=== PATIENT | male | born 1955 | race Caucasian/White ===

== ENCOUNTER → 2016-12-17 | Outpatient (CLI) | payer BC ==
[~2016-12-17] MED LIST: ACET-24 PO; ASPEC81 PO; CLB200 PO; NAPR1TAB9 PO; ONDA8TAB6 PO; PRLSR20 PO; RXC5 PO; SENN1TAB80 PO
[2016-12-17 14:37] LABS: ALT/SGPT 25 U/L (12-78); AST/SGOT 13 U/L (15-37); BLOOD UREA NITROGEN 15 mg/dl (7-18); BUN/CREATININE RATIO 17.5 (10-20); CALCIUM 8.9 mg/dl (8.5-10.1); CARBON DIOXIDE 25 mmol/L (21-32); CHLORIDE 109 mmol/L (98-107); CREATININE 0.88 mg/dl (0.60-1.40); GLUCOSE 91 mg/dl (70-99); POTASSIUM 4.1 mmol/L (3.5-5.1); SODIUM 140 mmol/L (136-145)
[2016-12-17 14:42] LABS: ALKALINE PHOSPHATASE 68 U/L (45-117); CHOLESTEROL 125 mg/dl (0-200); CHOLESTEROL/HDL RATIO 2.5; HDL CHOLESTEROL 50 mg/dl; TRIGLYCERIDES 74 mg/dl (0-150); VERY LOW DENSITY LIPOPROT CALC 15 mg/dl
== END | disposition home or self-care (01) ==
LOC: C.LAB 12:40
PROVIDERS: ATTEND Family Medicine
DX: Z13.6 Encounter for screening for cardiovascular disorders (principal); Z11.59 Encounter for screening for other viral diseases

== ENCOUNTER 2016-12-22 09:03 | Inpatient (IN) | payer BC ==
[2016-12-17 12:10] VITALS: BMI 42.0
--- NOTE | 2016-12-17 12:44 | PAT Medication Instructions ---
Service Date Dec 17, 2016. Current Home Medication List Naproxen (Aleve), 440 MG PO DAILY PRN for Pain Omeprazole (Prilosec), 20 MG PO DAILY PRN for Heartburn Medication Instructions For Your Scheduled Surgery - Check with surgeon for instructions: Naproxen (Aleve), 440 MG PO DAILY PRN for Pain - Take the following medications the morning of surgery with a sip of water: Omeprazole (Prilosec), 20 MG PO DAILY PRN for Heartburn (if needed) - Take the following medications as scheduled the night before surgery: Omeprazole (Prilosec), 20 MG PO DAILY PRN for Heartburn (if needed) If you have any questions please call us at [phone] or [phone] or [phone]
[2016-12-17 13:18] LABS: BASO % 0.5 %; BASO ABS # 0.03 K/uL (0-0.2); COMPLETE YES; EOS % 2.2 %; HEMATOCRIT 45.4 % (42-52); IG% 0.2 %; LYMPH % 33.5 %; LYMPH ABS # 1.94 K/uL (1.2-3.4); MEAN CELL VOLUME 91.5 fL (80-100); MEAN CORPUSCULAR HEMOGLOBIN 31.7 pg (25-34); MEAN CORPUSCULAR HGB CONC 34.6 g/dl (32-36); MEAN PLATELET VOLUME 9.8 fL (7.4-10.4); MONO % 7.6 %; PLATELET COUNT 186 K/uL (130-400); RED BLOOD COUNT 4.96 M/uL (4.7-6.1); WHITE BLOOD COUNT 5.79 K/uL (4.8-10.8)
[2016-12-17 13:32] LABS: PROTHROMBIN TIME (PATIENT) 10.7 SECONDS (9.0-12.0)
[2016-12-17 13:34] LABS: URINE APPEARANCE CLEAR (CLEAR); URINE BILIRUBIN NEG (NEG); URINE COLOR DK YELLOW; URINE NITRITE NEG (NEG); URINE SPECIFIC GRAVITY 1.027 (1.000-1.030); UROBILINOGEN NEG (NEG)
--- NOTE | 2016-12-17 13:35 | DIAGNOSTIC IMAGING REPORT ---
CHEST 2 VIEWS ROUTINE HISTORY: 61 years-old Male pat preoperative exam. No acute chest complaints COMPARISON: None available TECHNIQUE: PA and lateral views of the chest FINDINGS: Cardiomediastinal and hilar silhouettes are within normal limits. Lungs are mildly hyperinflated. No pneumothorax, pleural effusion, focal airspace consolidation or overt pulmonary edema. Remote appearing rib fractures are noted. The bones appear grossly intact. Multilevel endplate spurring of the spine. IMPRESSION: No acute cardiopulmonary process. The above report was generated using voice recognition software. It may contain grammatical, syntax or spelling errors. Electronically signed by: Onofre Clark M.D. 12/17/2016 1:34 PM Dictated Date/Time: 12/17/2016 1:33 PM
[2016-12-17 13:40] LABS: MANUAL MICROSCOPIC REQUIRED? NO; REVIEW REQ? NO
[2016-12-17 13:49] LABS: ESTIMATED AVERAGE GLUCOSE 103 mg/dl; HA1C FLAG Normal (Normal)
[~2016-12-22] VITALS: Ht 180.3 cm; Wt 136.2 kg
[2016-12-22] VITALS (8 sets, daily range): BP systolic 117–179; BP diastolic 72–98; PULSE 61–85; TEMP 36.3–37; O2SAT 95–99; Ht 180.3 cm; Wt 136.2 kg
--- NOTE | 2016-12-22 07:07 | History and Physical ---
History & Physical Date Dec 22, 2016. Chief Complaint Patient presents is a 61-year-old white male with severe end-stage DJD left knee with varus alignment for left total knee arthroplasty after failing attempts at conservative management History of Present Illness The patient is a 61 year old male with complaints of ongoing left knee pain varus alignment failing attempts at viscus supplementation corticosteroid injections and antibiotic anti-inflammatories as well as bracing relative rest activity modification Additional History Hepatic Disease: No Endocrine Disorder: No Kidney Disease: No Hypertension: No Heart Disease: No Bleeding Tendencies: No Infectious Diseases: No Allergies Uncoded Allergies: PENICILLIN (Allergy, Unknown, swelling, 12/17/16) Home Medications Scheduled PRN Naproxen (Aleve), 440 MG PO DAILY PRN for Pain Omeprazole (Prilosec), 20 MG PO DAILY PRN for Heartburn Physical Examination Skin: warm/dry, no rash Eyes: normal inspection, EOMI, sclerae normal ENT: normal ENT inspection, pharynx normal Head: normocephalic, atraumatic Neck: supple, no adenopathy, trachea midline Respiratory/Chest: lungs clear, normal breath sounds, no respiratory distress Cardiovascular: regular rate, rhythm, no edema, no murmur Abdomen / GI: normal bowel sounds, non tender Back: normal inspection Extremities: normal inspection, normal range of motion, + pertinent finding ( patient presents with severe end-stage DJD varus alignment osteophyte subchondral sclerosis and marginal osteophytes varus alignment left knee) Neurologic/Psych: no motor/sensory deficits, alert, normal reflexes, oriented x 3 Diagnosis Severe end-stage Tri-Chlor milligrams joint disease left knee with subchondral sclerosis osteophyte formation loose bodies Plan of Treatment 30 arthroplasty postoperative pain management DVT prophylaxis and box is necessary
--- NOTE | 2016-12-22 07:08 | History & Physical Bridge Note ---
H&P Re-Evaluation Bridge Note: I have examined the patient, reviewed the History & Physical and in the interval since the performance of the History & Physical I have noted the following changes of clinical significance: No changes noted
[~2016-12-22 09:03] MED LIST changes: -ACET-24 PO; -ASPEC81 PO; +BUPIVACAINE 0.25% 30 ML VIAL ONE; +BUPIVACAINE 0.5 % 5 MG/1 ML PF 10ML VIAL ONE; -CLB200 PO; +DEXAMETHASONE SOD INJ 4 MG/ML VIAL ONE; +EpINEphrine INJ 1MG/ML AMP 1 MG/ML AMP ONE; +FENTANYL CITRATE INJ 50 MCG/1 ML 2 ML VIAL ONE; +LACTATED RINGER'S 1000ML 1,000 ML IV SCH; +LACTATED RINGER'S 1000ML 500 ML IV ONE; +MIDAZOLAM HCL 1 MG/ML 2ML VIAL ONE; -ONDA8TAB6 PO; +PROPOFOL IV EMULSION 10 MG/ML 20 ML VIAL IV ONE; -RXC5 PO; -SENN1TAB80 PO
[2016-12-22] MEDS ORDERED: NURSING VERBAL MED ORDER STA (09:43)
[2016-12-22] MEDS ORDERED: CEFAZOLIN SOD 2000MG/10 ML IV PUSH IV ONE (09:51)
[2016-12-22] MEDS: TRANEXAMIC ACID INJ 1,000 MG in SYRINGE 0 ML IV SCH ×2 (10:15→10:45)
[2016-12-22] MEDS ORDERED: ROPIVACAINE 5MG/ML 30 ML 150 MG, BUPIVACAINE 0.5% MPF INJ 30 ML, EpINEphrine HCL INJ 0.... INFIL ONE ×8 (10:30)
[2016-12-22] MEDS ORDERED: ATROPINE SULFATE 0.1 MG/ML 5ML SYR IV PRN (11:00)
[2016-12-22] MEDS ORDERED: EpHEDrine SULFATE INJ 50 MG/ML AMP IV PRN (11:00)
[2016-12-22] MEDS ORDERED: ONDANSETRON INJ 2 MG/ML 2 ML VIAL IV PRN ×2 (11:00→13:45)
[2016-12-22] MEDS ORDERED: BACITRACIN 50000 UNIT VIAL ONE (11:12)
[2016-12-22] MEDS ORDERED: POVIDONE-IODINE OP SOLN 30 ML BTL ONE (11:12)
[2016-12-22] MEDS ORDERED: CLINDAMYCIN PHOS 150 MG/ML 2 ML VIAL ONE (12:02)
[2016-12-22] MEDS ORDERED: PROPOFOL IV EMULSION 10 MG/ML 20 ML VIAL IV ONE ×2 (12:24→12:58)
--- NOTE | 2016-12-22 13:02 | [facility] Operative Report ---
Operative Report Operative Date Dec 22, 2016. Pre-Operative Diagnosis Severe end-stage Tri-Chlor milligrams joint disease left knee with subchondral sclerosis osteophyte formation loose bodies Post-Operative Diagnosis SAME Procedure(s) Performed Left total knee arthroplasty cemented utilizing Conti & Nephew journey 2 nonlocked total knee arthroplasty size 8 femur 7 tibia Poly-[address] Garrison Bar Machine Operator Multiple Spindle Surgeon(s) Reginald Gold PA-C Estimated Blood Loss 5ML Findings Patient presents with severe end-stage tricompartmental degenerative joint disease with varus alignment subchondral cystic changes osteophytes sclerosis failed attempts at conservative management Specimens A. Left knee bone and tissue Complication(s) None Disposition Recovery Room / PACU Indications Patient presents after failing times a conservative management with severe end- stage DJD left knee presents after failing attempts at the viscus of rotations corticosteroid injections relative rest activity modification bracing physical therapy presents for left total knee arthroplasty Description of Procedure After proper prepping and draping of the left lower extremity anterior midline incision was made over the region of the extensor extensor mechanism after meticulous hemostasis was obtained and maintained in subcutaneous tissues a medial parapatellar incision was made The patella was subluxed lateralward the medial lateral gutter were cleaned from any hypertrophic synovitis and scar tissue of the distal femoral block was placed and the distal femoral osteotomy cut was made subsequently the chamfers anterior and posterior osteotomy cuts were made utilizing the 4-in-1 block the tibia was subsequently subluxed anteriorward medial and ateral meniscal remnants were excised in their entirety remnants of the anterior and posterior cruciate ligaments were excised in their entirety excellent exposure of the proximal tibia was obtained the tibial osteotomy guide was placed on the proximal tibial osteotomy cut was made once again the knee was irrigated with copious amounts of sterile saline solution the patella was subsequently everted lateralward thickened scar tissue around the patella was removed the patella was subsequently cut utilizing a freehand technique and was drilled prepared for final preparation and placement of patella socially flexion-extension gaps were checked and the equal and symmetric trials were placed to the appropriate femoral and tibial trials with poly-spacer being placed for equal flexion and extension gaps and full range of motion including extension to 0 and flexion to 140 the trial components after having been taken to recovery range of motion was subsequently removed meticulous hemostasis was obtained and maintained subsequently a knee block injection of joint cocktail including ropivacaine 0.5% 150 mg. Bupivacaine 0.5 % epinephrine 1-200,030 mL's toradol 30 mg dexamethasone 4 mg ketamine 10 mg clonidine 100 micrograms normal saline solution 30 mg was infiltrated into the soft tissues of the posterior knee medial lateral gutters and periosteal synovium special attention was paid to protect neurovascular structures at all times subsequently trial components having been removed the knee was irrigated with sterile saline solution. debris was removed the proximal tibia was subsequently prepared and was made ready for the placement of the tibial component tibial component was also cemented and tamped into position the femoral component was subsequently placed and cemented in the position the patellar component was subsequently cemented in position because hemostasis once again obtained and maintained wound having been thoroughly irrigated with debridement and debridement lavage was performed as well as a medial parapatellar incision closed with #1 Vicryl in interrupted fashion subcutaneous was closed with #2 Vicryl skin was closed with skin clips. PA-C was necessary for prepping and drapping as well as wound closure of deep fascia Sub cutaneous tissue and skin and was necessary for the case. A sterile compressive dressing was placed patient was taken to recovery in stable condition of report dictated by Bladimir I attest to the content of the Intraoperative Record and any orders documented therein. Any exceptions are noted below. I attest to the content of the Intraoperative Record and any orders documented therein. Any exceptions are noted below.
[2016-12-22] MEDS ORDERED: ALUMINUM/MAGNESIUM/SIMETH (MAALOX MAX) 30 ML UDC PO PRN (13:45)
[2016-12-22] MEDS ORDERED: BISACODYL 10 MG SUPP PR PRN (13:45)
[2016-12-22] MEDS ORDERED: MoRPHine SULFATE 2 MG/ML CARP IV PRN ×2 (13:45→15:45)
[2016-12-22] MEDS ORDERED: MAGNESIUM HYDROXIDE SUSP 30 ML UDC PO PRN (13:45)
[2016-12-22] MEDS ORDERED: OXYCODONE HCL IR 5 MG TAB (IMMEDIATE RELEASE) PO PRN (13:45)
--- NOTE | 2016-12-22 14:04 | DIAGNOSTIC IMAGING REPORT ---
L KNEE 1 OR 2 VIEWS ROUTINE HISTORY: 61 years-old Male AP/LATERAL IN PACU LEFT KNEE status post left knee total joint arthroplasty. Degenerative joint disease. COMPARISON: None available TECHNIQUE: Frontal and lateral views of the left knee FINDINGS: Postoperative changes compatible with total joint arthroplasty and patellar resurfacing are noted. No periprosthetic fracture, malalignment or retained foreign body identified. Surgical drain is in place. Expected soft tissue swelling and deep tissue air is noted postoperatively. IMPRESSION: Status post left knee total joint arthroplasty and patellar resurfacing without complication identified. The above report was generated using voice recognition software. It may contain grammatical, syntax or spelling errors. Electronically signed by: Onofre Clark M.D. 12/22/2016 2:03 PM Dictated Date/Time: 12/22/2016 2:02 PM
--- NOTE | 2016-12-22 15:13 | Anesthesiology Progress Note ---
Anesthesia Post Op Note Date & Time Dec 22, 2016 at 15:13 Vital Signs Pain Intensity: 0 Vital Signs Past 12 Hours Date Time Temp Pulse Resp B/P (MAP) Pulse Ox O2 Delivery O2 Flow Rate FiO2 12/22/16 15:05 63 13 99 12/22/16 15:05 64 13 12/22/16 15:00 60 14 12/22/16 15:00 60 14 118/73 99 12/22/16 14:56 94/69 12/22/16 14:55 58 14 12/22/16 14:55 59 14 99 12/22/16 14:51 113/71 12/22/16 14:50 59 14 99 12/22/16 14:50 59 14 12/22/16 14:46 116/71 12/22/16 14:45 56 14 12/22/16 14:45 56 14 100 12/22/16 14:41 117/77 12/22/16 14:40 58 15 99 12/22/16 14:40 59 15 12/22/16 14:36 115/75 12/22/16 14:35 60 24 100 12/22/16 14:35 60 24 12/22/16 14:31 115/71 12/22/16 14:30 58 12 12/22/16 14:30 58 12 100 12/22/16 14:29 61 16 100 12/22/16 14:29 61 16 12/22/16 14:26 123/79 12/22/16 14:24 59 16 12/22/16 14:24 58 16 100 12/22/16 14:21 36.5 59 16 117/70 100 Nasal Cannula 2 12/22/16 14:21 117/70 12/22/16 14:19 60 17 100 12/22/16 14:19 60 17 12/22/16 14:18 61 16 12/22/16 14:18 62 16 100 12/22/16 14:16 112/72 12/22/16 14:13 65 15 12/22/16 14:13 64 15 100 12/22/16 14:11 118/93 12/22/16 14:08 66 20 12/22/16 14:08 67 20 98 12/22/16 14:07 106/63 12/22/16 14:07 106/63 12/22/16 14:05 65 17 12/22/16 14:05 65 17 12/22/16 14:05 65 17 100 12/22/16 14:05 65 17 100 12/22/16 14:02 104/63 12/22/16 14:02 104/63 12/22/16 14:00 68 17 12/22/16 14:00 69 17 100 12/22/16 14:00 69 17 100 12/22/16 14:00 68 17 12/22/16 13:55 66 19 12/22/16 13:55 66 19 12/22/16 13:55 67 19 99 12/22/16 13:55 67 19 99 12/22/16 13:53 36.0 73 18 96/63 (68) 98 Room Air 2 12/22/16 13:51 96/60 12/22/16 13:51 93/60 12/22/16 13:50 65 15 12/22/16 13:50 64 15 100 12/22/16 13:50 64 15 100 12/22/16 13:50 65 15 12/22/16 13:47 99/61 12/22/16 13:47 99/61 12/22/16 13:45 74 19 12/22/16 13:45 76 19 98 12/22/16 13:45 76 19 98 12/22/16 13:45 74 19 12/22/16 13:42 96/51 12/22/16 13:42 96/51 12/22/16 13:41 96/63 12/22/16 13:41 96/63 12/22/16 13:40 70 15 12/22/16 13:40 70 15 98 12/22/16 13:40 70 15 12/22/16 13:40 70 15 98 12/22/16 09:32 36.5 85 18 179/98 95 Room Air Notes Mental Status: alert / awake / arousable, participated in evaluation Pt Amnestic to Procedure: Yes Nausea / Vomiting: adequately controlled Pain: adequately controlled Airway Patency, RR, SpO2: stable & adequate BP & HR: stable & adequate Hydration State: stable & adequate Anesthetic Complications: no major complications apparent
[2016-12-22] MEDS ORDERED: MoRPHine SULFATE 10 MG/ML CARP/VIAL IV PRN (15:45)
[2016-12-22] MEDS ORDERED: MoRPHine SULFATE 4 MG/ML 1 ML CARP\\VIAL IV PRN (15:45)
[2016-12-22] MEDS: D5W AND 1/2NSS + 20MEQ KCL 1,000 ML IV SCH (16:34)
[2016-12-22] MEDS: KETOROLAC TROMETHAMINE 15 MG/ML VIAL IV. SCH ×2 (16:36→22:07)
[2016-12-22] MEDS: ACETAMINOPHEN 500 MG TAB PO SCH ×2 (16:51→22:06)
[2016-12-22] MEDS: FERROUS GLUCONATE 324 MG TAB PO SCH (17:33)
[2016-12-22] MEDS: CLINDAMYCIN IV 600 MG in DEXTROSE 5% 50ML 50 ML IV SCH (19:55)
[2016-12-22] MEDS: ASPIRIN 81 MG ECTAB PO SCH (22:06)
[2016-12-22] MEDS: SENNA 8.6 MG TAB PO SCH (22:06)
[2016-12-22] MEDS: DOCUSATE SODIUM 100 MG CAP PO SCH (22:06)
[2016-12-23] VITALS (7 sets, daily range): BP systolic 112–144; BP diastolic 72–92; PULSE 60–93; TEMP 36.4–37; O2SAT 96–98
[2016-12-23] MEDS: D5W AND 1/2NSS + 20MEQ KCL 1,000 ML IV SCH ×2 (02:48→12:32)
[2016-12-23] MEDS: CLINDAMYCIN IV 600 MG in DEXTROSE 5% 50ML 50 ML IV SCH (03:44)
[2016-12-23] MEDS: KETOROLAC TROMETHAMINE 15 MG/ML VIAL IV. SCH ×2 (03:44→10:17)
[2016-12-23] MEDS: ACETAMINOPHEN 500 MG TAB PO SCH ×3 (05:38→21:35)
[2016-12-23 06:54] LABS: MEAN CELL VOLUME 91.1 fL (80-100); MEAN CORPUSCULAR HEMOGLOBIN 31.4 pg (25-34); MEAN CORPUSCULAR HGB CONC 34.4 g/dl (32-36); MEAN PLATELET VOLUME 10.2 fL (7.4-10.4); PLATELET COUNT 148 K/uL (130-400); RED BLOOD COUNT 3.95 M/uL (4.7-6.1); WHITE BLOOD COUNT 12.22 K/uL (4.8-10.8)
[2016-12-23 07:31] LABS: BUN/CREATININE RATIO 17.7 (10-20); CALCIUM 8.7 mg/dl (8.5-10.1); CREATININE 0.89 mg/dl (0.60-1.40); POTASSIUM 4.2 mmol/L (3.5-5.1)
--- NOTE | 2016-12-23 08:34 | Orthopedic Progress Note ---
Orthopedic Progress Note Date of Service Dec 23, 2016. Subjective Post OP Day: 1 Reports: feeling well, Denies: complaints Objective calves soft nontender, N/V intact, dressing C/D/I, A&O x3, toes mobile, hemovac drainage (350ml latest shift) Date Time Temp Pulse Resp B/P (MAP) Pulse Ox O2 Delivery O2 Flow Rate FiO2 12/23/16 07:55 96 Room Air 12/23/16 07:47 36.6 62 16 134/82 (99) 96 Room Air 12/23/16 03:20 36.7 61 18 134/86 (102) 97 Room Air 12/22/16 23:15 37.0 65 18 119/80 (93) 97 Room Air 12/22/16 19:55 Room Air 12/22/16 19:23 36.8 65 17 145/92 (109) 97 Room Air 12/22/16 18:18 36.5 66 18 129/76 (93) 95 Room Air 12/22/16 17:14 36.3 65 17 132/84 (100) 97 Room Air 12/22/16 16:16 36.9 61 17 124/76 (92) 99 Nasal Cannula 2.0 12/22/16 15:47 36.8 62 17 117/78 (91) 98 Nasal Cannula 2.0 12/22/16 15:15 95 Nasal Cannula 2.0 12/22/16 15:15 36.5 76 18 125/72 (89) 95 Nasal Cannula 2.0 12/22/16 15:15 Nasal Cannula 2.0 12/22/16 15:05 63 13 99 12/22/16 15:05 64 13 12/22/16 15:00 60 14 12/22/16 15:00 60 14 118/73 99 12/22/16 14:56 94/69 12/22/16 14:55 58 14 12/22/16 14:55 59 14 99 12/22/16 14:51 113/71 12/22/16 14:50 59 14 99 12/22/16 14:50 59 14 12/22/16 14:46 116/71 12/22/16 14:45 56 14 12/22/16 14:45 56 14 100 12/22/16 14:41 117/77 12/22/16 14:40 58 15 99 12/22/16 14:40 59 15 17 14:36 115/75 17 14:35 60 24 100 17 14:35 60 24 17 14:31 115/71 17 14:30 58 12 17 14:30 58 12 100 17 14:29 61 16 100 17 14:29 61 16 17 14:26 123/79 12/22/16 14:24 59 16 17 14:24 58 16 100 17 14:21 36.5 59 16 117/70 100 Nasal Cannula 2 12/22/16 14:21 117/70 12/22/16 14:19 60 17 100 12/22/16 14:19 60 17 12/22/16 14:18 61 16 12/22/16 14:18 62 16 100 12/22/16 14:16 112/72 12/22/16 14:13 65 15 12/22/16 14:13 64 15 100 12/22/16 14:11 118/93 12/22/16 14:08 66 20 12/22/16 14:08 67 20 98 12/22/16 14:07 106/63 12/22/16 14:07 106/63 12/22/16 14:05 65 17 12/22/16 14:05 65 17 12/22/16 14:05 65 17 100 12/22/16 14:05 65 17 100 12/22/16 14:02 104/63 12/22/16 14:02 104/63 12/22/16 14:00 68 17 12/22/16 14:00 69 17 100 12/22/16 14:00 69 17 100 12/22/16 14:00 68 17 12/22/16 13:55 66 19 12/22/16 13:55 66 19 17 13:55 67 19 99 17 13:55 67 19 99 17 13:53 36.0 73 18 96/63 (68) 98 Room Air 2 12/22/16 13:51 96/60 17 13:51 93/60 1417 13:50 65 15 17 13:50 64 15 100 12/22/16 13:50 64 15 100 12/22/16 13:50 65 15 12/22/16 13:47 99/61 12/22/16 13:47 99/61 12/22/16 13:45 74 19 12/22/16 13:45 76 19 98 12/22/16 13:45 76 19 98 12/22/16 13:45 74 19 12/22/16 13:42 96/51 12/22/16 13:42 96/51 12/22/16 13:41 96/63 12/22/16 13:41 96/63 12/22/16 13:40 70 15 12/22/16 13:40 70 15 98 12/22/16 13:40 70 15 12/22/16 13:40 70 15 98 12/22/16 09:32 36.5 85 18 179/98 95 Room Air Laboratory Results 24 Hours: Test 12/23/16 06:24 Hematocrit 36.0 % Hemoglobin 12.4 g/dL Assessment & Plan Assessment: POD 1 s/p Left TKA Plan: PT/OT DVT Proph - ASA bid Pain Control - OxyIR, Celebrex, Tramadol, Tylenol EUGENIA plannning - looking into rehab facility near his home in [place]; await approval
[2016-12-23] MEDS: FERROUS GLUCONATE 324 MG TAB PO SCH ×3 (08:35→17:35)
[2016-12-23] MEDS: MULTIVITAMIN TAB PO SCH (08:35)
[2016-12-23] MEDS: PANTOprazole SOD 40 MG TAB PO SCH (08:36)
[2016-12-23] MEDS: ASPIRIN 81 MG ECTAB PO SCH ×2 (08:36→20:56)
--- NOTE | 2016-12-23 09:59 | Clinical Documentation Query ---
ADDENDUM ADDED TO H&P In order for coders to capture the patient's BMI of 41.9, Obesity needs to be documented in the medical record. Please Document Present on Admission Status for - Obesity. Thank You, Roslyn Fish RN [phone]
[2016-12-23] MEDS: DOCUSATE SODIUM 100 MG CAP PO SCH ×2 (10:17→20:56)
--- NOTE | 2016-12-23 14:31 | HISTORY & PHYSICAL EXAMINATION ---
DATE OF ADMISSION: 12/22/2016 ADDENDUM HISTORY OF PRESENT ILLNESS: The patient presents as a male being seen and evaluated at age 61 for his left total knee arthroplasty. His BMI is 41.6 and diagnosis of obesity.
[2016-12-23] MEDS: TRAMADOL HCL 50 MG TAB PO PRN (20:55)
[2016-12-23] MEDS: CeleBREX 200 MG CAP PO SCH (20:57)
[2016-12-23] MEDS: SENNA 8.6 MG TAB PO SCH (21:34)
[2016-12-24] MEDS: ACETAMINOPHEN 500 MG TAB PO SCH (05:59)
[2016-12-24 07:30] VITALS: BP 124/82; PULSE 56; TEMP 36.5; O2SAT 99
--- NOTE | 2016-12-24 07:35 | Orthopedic Progress Note ---
Orthopedic Progress Note Date of Service Dec 24, 2016. Subjective Post OP Day: 2 Reports: feeling well, Denies: chest pain, SOB, nausea / vomiting, light headedness, calf pain Objective calves soft nontender, N/V intact, capillary refill less than 2 sec., incision C /D/I, A&O x3, toes mobile Date Time Temp Pulse Resp B/P (MAP) Pulse Ox O2 Delivery O2 Flow Rate FiO2 12/24/16 00:17 Room Air 12/23/16 22:52 36.6 60 18 112/72 (85) 98 Room Air 12/23/16 16:00 Room Air 12/23/16 15:00 36.4 78 18 143/74 (97) 98 Room Air 12/23/16 11:48 93 97 12/23/16 11:41 37.0 68 14 118/78 (91) 98 Room Air 12/23/16 08:52 Room Air 12/23/16 07:55 96 Room Air 12/23/16 07:47 36.6 62 16 134/82 (99) 96 Room Air Assessment & Plan Assessment: POD 2 s/p Left TKA Plan: PT/OT DVT Proph - ASA bid Pain Control - OxyIR, Celebrex, Tramadol, Tylenol DC plannning - REFERRAL PLACED TO [facility]. AWAITING INSURANCE APPROVAL. STABLE FOR TRANSFER TODAY IF ACCEPTED.
[2016-12-24] MEDS ORDERED: ONDA8TAB6 PO (07:39)
[2016-12-24] MEDS ORDERED: ACET-24 PO (07:39)
[2016-12-24] MEDS ORDERED: RXC5 PO (07:39)
[2016-12-24] MEDS ORDERED: CLB200 PO (07:39)
[2016-12-24] MEDS ORDERED: ASPEC81 PO (07:39)
[2016-12-24] MEDS ORDERED: SENN1TAB80 PO (07:39)
--- NOTE | 2016-12-24 07:41 | Discharge Instructions ---
Discharge Instructions Date of Service Dec 24, 2016. Admission Reason for Admission: Left Knee Osteoarthritis Discharge Discharge Diagnosis / Problem: SP LEFT TKA Discharge Goals Goal(s): Decrease discomfort, Improve function, Increase independence Activity Recommendations Activity Level: Assistance Required Therapies: Physical Therapy, Occupational Therapy . Additional Information Patient informed of condition: Yes Advance Directives: Yes DNR: No Level of Care: Acute Rehab Communicable Disease: No Prognosis: Stable Instructions / Follow-Up Instructions / Follow-Up ACTIVITY RECOMMENDATIONS: SELF CARE INSTRUCTIONS AFTER TOTAL KNEE REPLACEMENT A. You may need to continue a physical therapy program after discharge from the hospital. There are several options available to you. Your doctor will assist you in selecting the best one for you. 1. An out-patient facility 2 to 3 times a week for therapy or home therapy. 2. Continue working on all exercises taught to you in the hospital. Your goals should be to increase bending of your knee to 90 degrees and beyond and to fully straighten your knee. B. You may progress at your own pace from walking with a walker or crutches to a cane; then to no assistive devices. C. Make walking a part of your daily routine. Be up as much as comfortable with rest periods throughout the day. Rest with leg elevation is very important. Use the ice wrap frequently for the first 3-4 weeks. D. There are no restrictions on activities. You may ride in a car, shop, participate in photoengraving helper and all social activities. E. Wear the long elastic stockings (JONELLE hose) 20 hours a day for 2 weeks after surgery. They can be removed several times a day for laundering and for a bath. F. You may shower, no tub baths until cleared by your doctor. SPECIAL CARE INSTRUCTIONS: VERY IMPORTANT TO READ AND REVIEW A. There are a few signs you need to watch for after you are home. Call [facility] if you notice any of the followin. Increased severe knee pain. Some pain is expected especially when you exercise. 2. Increased swelling in your leg or knee; pain or swelling of the calf muscle in either lower leg. 3. Any fluid drainage from the incision. 4. Shortness of breath or chest pain. B. Please call [facility] at if you have any concerns or questions about your operation or recovery. The doctor or his nurse will return your call promptly. C. You must take antibiotics before dental work, bladder, bowel or other surgery. Your doctor will provide you with a permanent care to carry describing this precaution. IMPORTANT: * REMEMBER TO TAKE ASPIRIN, 81 MG, TWICE DAILY FOR 4 WEEKS UNLESS OTHERWISE DIRECTED. THIS IS YOUR BLOOD THINNER. * HIGH RISK PATIENTS MAY BE PRESCRIBED A STRONGER BLOOD THINNER. THIS WILL BE PROVIDED AT DISCHARGE. * CALL IF INCREASED PAIN, REDNESS, DRAINAGE OR FEVER GREATER THAT 101. * WEAR JONELLE HOSE 20 HOURS PER DAY FOR 2 WEEKS. * YOU HAVE A ZIPLINE CLOSURE. THIS IS IN PLACE OF [place]. DO NOT REMOVE. YOU MAY COVER WITH A LIGHT DRESSING TO AVOID SNAGGING. THIS WILL BE REMOVED AT YOUR 2 WEEK POST OP VISIT. FOLLOW UP VISIT: If appointment is not already scheduled: Please call [facility] to make a follow-up appointment for 2 weeks after your surgery at . Current Hospital Diet Patient's current hospital diet: Regular Diet Discharge Diet Recommended Diet: Regular Diet Procedures Procedures Performed: Left total knee arthroplasty cemented utilizing Conti & Nephew journey 2 nonlocked total knee arthroplasty size 8 femur 7 tibia Poly-35 oval patella Pending Studies Studies pending at discharge: no Laboratory Results Hemoglobin A1c Test 12/17/16 12:55 Range/Units Estimated Average Glucose 103 mg/dl Hemoglobin A1c 5.2 4.5-5.6 % Lipid Panel Test 12/17/16 12:55 Range/Units Triglycerides Level 74 0-150 mg/dl Cholesterol Level 125 0-200 mg/dl HDL Cholesterol 50 mg/dl LDL Cholesterol Direct 79 mg/dl Cholesterol/HDL Ratio 2.5 LDL Cholesterol, Calculated mg/dl Medical Emergencies . Who to Call and When: Medical Emergencies: If at any time you feel your situation is an emergency, please call 911 immediately. . Non-Emergent Contact Non-Emergency issues call your: Surgeon . . "Provider Documentation" section prepared by Cele Daniel. . Core Measure Problem Core Measures: None
[2016-12-24] MEDS: FERROUS GLUCONATE 324 MG TAB PO SCH (08:46)
[2016-12-24] MEDS: PANTOprazole SOD 40 MG TAB PO SCH (08:47)
[2016-12-24] MEDS: DOCUSATE SODIUM 100 MG CAP PO SCH (08:47)
[2016-12-24] MEDS: MULTIVITAMIN TAB PO SCH (08:47)
[2016-12-24] MEDS: CeleBREX 200 MG CAP PO SCH (09:58)
[2016-12-24] MEDS: ASPIRIN 81 MG ECTAB PO SCH (09:58)
[2016-12-24] MEDS: TRAMADOL HCL 50 MG TAB PO PRN (11:06)
[2016-12-24 13:12] VITALS: BP 124/82; PULSE 56; TEMP 36.5; O2SAT 99
== END 2016-12-24 13:42 | DRG 470 ==
LOC: C.ACU 09:03 → C.3E 10:00 → ENRESERV 14:39
PROVIDERS: ADMIT Orthopaedic Surgery; ATTEND Orthopaedic Surgery
PROC: 0SRU0J9 Replacement of Left Knee Joint, Femoral Surface with Synthetic Substitute, Cemented, Open Approach (ICD-10-PCS; principal; 2016-12-22 11:45)
DX: M17.12 Unilateral primary osteoarthritis, left knee (principal); Z68.41 Body mass index [BMI] 40.0-44.9, adult; E66.9 Obesity, unspecified